=== PATIENT | female | born 1990 | race Caucasian/White ===

== ENCOUNTER 2021-07-16 16:43 | Emergency (ER) | payer OTHER ==
[~2021-07-16] VITALS: Ht 162.6 cm; Wt 62.0 kg
[2021-07-16] MEDS ORDERED: CLINDAMYCIN HC150 MG PO (17:23)
[2021-07-16] MEDS ORDERED: HYDROCO/APAP1 TA9 PO (18:02)
[2021-07-16 18:41] VITALS: BP 129/76
== END 2021-07-16 18:40 | disposition home or self-care (01) ==
LOC: ED 16:43
DX: K08.89 Other specified disorders of teeth and supporting structures (principal)

== ENCOUNTER 2022-09-17 14:08 | Emergency (ER) | payer OTHER ==
[~2022-09-17] VITALS: Ht 167.6 cm; Wt 49.9 kg
[2022-09-17] VITALS (9 sets, daily range): BP systolic 100–110; BP diastolic 57–79
[~2022-09-17 14:08] MED LIST: CLINDAMYCIN HC150 MG PO; HYDROCO/APAP1 TA9 PO
== END 2022-09-17 16:25 | disposition home or self-care (01) ==
LOC: ED 14:08
DX: M25.512 Pain in left shoulder (principal)